=== PATIENT | female | born 1980 | race Two or more races ===

== ENCOUNTER 2024-11-20 10:34 | Outpatient (CLI) | payer BC ==
[2024-11-20 11:39] LABS: Mean Corpuscular Hemoglobin 17.5 pg (28.0-32.0); Mean Corpuscular Volume 59.3 fL (80.0-100.0)
[2024-11-20 11:41] LABS: Hematocrit 26.7 % (36.0-46.0); Hemoglobin 7.9 g/dL (12.2-16.2); Nucleated Red Blood Cells % 0.0 %
[2024-11-20 11:59] LABS: Alanine Aminotransferase 10 U/L (7-40); Albumin 4.8 g/dL (3.2-4.8); Alkaline Phosphatase 101 U/L (46-116); Anion Gap 8 (5-15); BUN/Creatinine Ratio 15.7 (10.0-20.0); Bilirubin, Total 0.5 mg/dL (0.2-1.0); Blood Urea Nitrogen 13 mg/dL (9-23); Calcium 11.0 mg/dL (8.7-10.4); Carbon Dioxide 22 mmol/L (20-31); Chloride 108 mmol/L (98-107); Cholesterol 129 mg/dL (< 200); Glucose 90 mg/dL (74-106); HDL Cholesterol 46 mg/dL (40-59); Potassium 4.8 mmol/L (3.5-5.1); Sodium 138 mmol/L (136-145); Total Protein 7.1 g/dL (5.7-8.2); Triglycerides 70 mg/dL (< 150)
[2024-11-20 12:33] LABS: Anisocytosis Slight
[2024-11-20 12:34] LABS: Ovalocytes FEW
== END 2024-11-20 17:00 | disposition home or self-care (01) ==
LOC: LAB 10:34
PROVIDERS: ATTEND Nurse Practitioner Family
DX: I10 Essential (primary) hypertension (principal); E03.9 Hypothyroidism, unspecified; D51.0 Vitamin B12 deficiency anemia due to intrinsic factor deficiency; Z00.01 Encounter for general adult medical examination with abnormal findings
CPT/HCPCS: 36415; 80053; 80061; 82607; 84443; 85025

== ENCOUNTER → 2025-01-16 | Outpatient (CLI) | payer BC ==
[2025-01-16 09:40] LABS: Potassium 4.4 mmol/L (3.5-5.1); Sodium 140 mmol/L (136-145)
[2025-01-16 09:41] LABS: Anion Gap 9 (5-15); Calcium 9.9 mg/dL (8.7-10.4); Carbon Dioxide 22 mmol/L (20-31)
[2025-01-16 09:42] LABS: Chloride 109 mmol/L (98-107)
[2025-01-16 09:46] LABS: BUN/Creatinine Ratio 20.3 (10.0-20.0); Blood Urea Nitrogen 15 mg/dL (9-23); Glucose 94 mg/dL (74-106)
== END | disposition home or self-care (01) ==
LOC: LAB 09:00
PROVIDERS: ATTEND Nurse Practitioner Family
DX: Z01.812 Encounter for preprocedural laboratory examination (principal); R92.8 Other abnormal and inconclusive findings on diagnostic imaging of breast
CPT/HCPCS: 36415; 80048

== ENCOUNTER → 2025-02-04 | Outpatient (CLI) | payer BC ==
[2025-02-04 09:01] LABS: Nucleated Red Blood Cells % 0.0 %
[2025-02-04 09:02] LABS: Hematocrit 33.5 % (36.0-46.0); Hemoglobin 10.6 g/dL (12.2-16.2); Mean Corpuscular Hemoglobin 21.2 pg (28.0-32.0); Mean Corpuscular Volume 67.1 fL (80.0-100.0)
[2025-02-04 09:48] LABS: Alanine Aminotransferase 13 U/L (7-40); Alkaline Phosphatase 98 U/L (46-116); Anion Gap 10 (5-15); Calcium 10.2 mg/dL (8.7-10.4); Carbon Dioxide 24 mmol/L (20-31); Potassium 4.6 mmol/L (3.5-5.1); Sodium 141 mmol/L (136-145)
[2025-02-04 09:49] LABS: BUN/Creatinine Ratio 19.2 (10.0-20.0); Blood Urea Nitrogen 14 mg/dL (9-23); Total Protein 7.2 g/dL (5.7-8.2)
[2025-02-04 09:50] LABS: Albumin 4.5 g/dL (3.2-4.8)
[2025-02-04 09:51] LABS: Bilirubin, Total 0.4 mg/dL (0.2-1.0); Chloride 107 mmol/L (98-107); Glucose 94 mg/dL (74-106)
[2025-02-04 10:31] LABS: Anisocytosis Moderate
[2025-02-04 10:32] LABS: Ovalocytes FEW
[2025-02-04 11:22] LABS: Iron 67.0 ug/dL (50-170)
[2025-02-04 11:25] LABS: Total Iron Binding Capacity 385.0 ug/dL (250-425)
== END | disposition home or self-care (01) ==
LOC: LAB 08:28
PROVIDERS: ATTEND Nurse Practitioner Family
DX: E03.9 Hypothyroidism, unspecified (principal); E83.52 Hypercalcemia; D50.9 Iron deficiency anemia, unspecified
CPT/HCPCS: 36415; 80053; 83540; 83550; 83970; 84443; 85025